=== PATIENT | male | born 1970 | race Caucasian/White ===

== ENCOUNTER 2017-01-13 06:51 | Observation (INO) | payer OTHER ==
--- NOTE | 2017-01-13 06:59 | EDPHY ---
H & P Time Seen by Provider: 01/13/17 06:58 HPI/ROS: CHIEF COMPLAINT: Abdominal pain HISTORY OF PRESENT ILLNESS: Started Friday night approximately 36 hours ago. It has continued to be in the right side of the abdomen below the ribs lateral to the umbilicus. Slightly worse with a deep breath but not changed with eating or drinking. No chest pain or shortness of breath. No cough or hemoptysis. Symptoms do not radiate and are not associated with hematuria or dysuria. No recent fall injury or trauma. Symptoms continue to be mild are not getting better today. REVIEW OF SYSTEMS: Eye: no change in vision ENT: no sore throat Cardiac: no chest pain or syncope Pulmonary: no cough or SOB Abdomen: No vomiting or diarrhea Musculoskeletal: no back pain Skin: no rash Neuro: no headache Constitutional: no fever : no urinary symptoms, no male symptoms. A comprehensive 10 point review of systems is otherwise negative aside from elements mentioned in the history of present illness. PAST MEDICAL HISTORY: Negative except for slightly elevated glucose at 150 noted on screening lab, improved with diet and exercise. Social history: Works at [employer], negative family history for gallstones or venous thromboembolism General Appearance: Alert and conversant, cooperative. Eyes: No scleral icterus. ENT, Mouth: Normal mucous membranes. Respiratory: Normal respiratory effort, breath sounds equal, lungs are clear to auscultation. Speaks in full sentences. Cardiovascular: Regular rate and rhythm. Gastrointestinal: No Caballero sign. Abdominal tenderness on the right side lateral to the umbilicus. No hernia appreciated. Symptoms reproduced by abdominal palpation lateral to the umbilicus but not all the way to the mid axillary line. Neurological: Alert and oriented x3. Normally conversant. Face symmetric, normal movement and sensation in all extremities. Skin: Warm and dry, no rashes. Musculoskeletal: No peripheral edema and no joint swelling. Psychiatric: Not agitated. Emergency Department course/MDM: Suspicion for cardiac or pulmonary disease is low. Plan for labs to include LFTs and lipase, consider CT scanning to evaluate for renal colic or appendicitis. 748: Labs reviewed with the patient, CT scanning abdomen and pelvis discussed and consented. 835: CT reviewed with the patient on PACS. [facility] contacted at this time; per Dr. Cramer. Case discussed with the [facility] physician Dr. Love at 850. ECM physician is requesting transfer to [place] for definitive surgical consultation. The accepting physician is Dr. Huff. Risks, benefits, and alternatives discussed with the patient and consented. The patient will be transferred to [facility] via private vehicle because he is a [place] patient, in stable condition. This is a patient requested transfer. Smoking Status: Never smoked Constitutional: Initial Vital Signs Temperature (C) 36.5 C 01/13/17 06:51 Heart Rate 89 01/13/17 06:51 Respiratory Rate 16 01/13/17 06:51 Blood Pressure 149/90 H 01/13/17 06:51 O2 Sat (%) 96 01/13/17 06:51 O2 Delivery Mode Room Air Allergies/Adverse Reactions: acetaminophen [From Percocet] Allergy (Verified 01/13/17 06:55) oxycodone [From Percocet] Allergy (Verified 01/13/17 06:55) Home Medications: Medication Instructions Recorded Cyclobenzaprine [Flexeril 10 MG 10 mg PO TID #15 tab 05/22/15 (RX)] Ibuprofen [Motrin (*)] 800 mg PO Q6 #15 tab 05/22/15 Medical Decision Making - Diagnostics Imaging Results: Imaging Impressions Abdomen CT 01/13/17 07:50 Impression: 1. Acute appendicitis with appendix thickened up to 11 mm. 2. Constipation without bowel obstruction, drainable abscess, or pneumoperitoneum. 3. Probable hepatic cyst. Findings and recommendations discussed with Emergency Department physician, Jarvis Bhandari, at 0830 hours, January 13, 2017. Final report concurs with initial preliminary interpretation. Acute appendicitis per Isuani at 830am, reviewed by myself. Differential Diagnosis: Differential considered including but not limited to pneumothorax, pneumonia, pulmonary embolism, hepatitis or gallbladder disease, pancreatitis, diverticulitis, renal colic, appendicitis. - Data Points Laboratory Results: Laboratory Results 01/13/17 07:10 01/13/17 07:10 01/13/17 01/13/17 01/13/17 08:00 07:10 07:10 WBC 6.05 10^3/uL 10^3/uL (3.80-9.50) RBC 5.62 10^6/uL 10^6/uL (4.40-6.38) Hgb 16.1 g/dL g/dL (13.7-17.5) Hct 48.4 % % (40.0-51.0) MCV 86.1 fL fL (81.5-99.8) MCH 28.6 pg pg (27.9-34.1) MCHC 33.3 g/dL g/dL (32.4-36.7) RDW 13.2 % % (11.5-15.2) Plt Count 260 10^3/uL 10^3/uL (150-400) MPV 9.6 fL fL (8.7-11.7) Neut % (Auto) 56.0 % % (39.3-74.2) Lymph % (Auto) 29.6 % % (15.0-45.0) [place] % (Auto) 9.3 % % (4.5-13.0) Eos % (Auto) 3.6 % % (0.6-7.6) Baso % (Auto) 1.2 % % (0.3-1.7) Nucleat RBC Rel Count 0.0 % % (0.0-0.2) Absolute Neuts (auto) 3.39 10^3/uL 10^3/uL (1.70-6.50) Absolute Lymphs (auto) 1.79 10^3/uL 10^3/uL (1.00-3.00) Absolute Monos (auto) 0.56 10^3/uL 10^3/uL (0.30-0.80) Absolute Eos (auto) 0.22 10^3/uL 10^3/uL (0.03-0.40) Absolute Basos (auto) 0.07 10^3/uL 10^3/uL (0.02-0.10) Absolute Nucleated RBC 0.00 10^3/uL 10^3/uL (0-0.01) Immature Gran % 0.3 % % (0.0-1.1) Immature Gran # 0.02 10^3/uL 10^3/uL (0.00-0.10) Sodium 139 mEq/L mEq/L (134-144) Potassium 4.6 mEq/L mEq/L (3.5-5.2) Chloride 106 mEq/L mEq/L (97-110) Carbon Dioxide 26 mEq/l mEq/l (22-31) Anion Gap 7 mEq/L L mEq/L (8-16) BUN 9 mg/dL mg/dL (7-23) Creatinine 0.9 mg/dL mg/dL (0.7-1.3) Estimated GFR > 60 Glucose 108 mg/dL H mg/dL (70-100) Calcium 9.1 mg/dL mg/dL (8.5-10.4) Total Bilirubin 0.8 mg/dL mg/dL (0.1-1.4) Conjugated Bilirubin 0.3 mg/dL mg/dL (0.0-0.5) Unconjugated Bilirubin 0.5 mg/dL mg/dL (0.0-1.1) AST 26 IU/L IU/L (17-59) ALT 52 IU/L IU/L (21-72) Alkaline Phosphatase 71 IU/L IU/L (38-126) Total Protein 6.9 g/dL g/dL (6.3-8.2) Albumin 3.9 g/dL g/dL (3.5-5.0) Lipase 198.0 IU/L IU/L (23-300) Urine RBC 1-3 /hpf /hpf (0-3) Urine WBC 1-3 /hpf /hpf (0-3) Ur Epithelial Cells NONE SEEN /lpf /lpf (NONE-1+) Urine Mucus TRACE /lpf /lpf (NONE-1+) Departure - Departure Disposition: [facility] Clinical Impression: Acute appendicitis Qualifiers: Acute appendicitis type: unspecified acute appendicitis type Qualified Code(s) : K35.80 - Unspecified acute appendicitis Condition: Good Referrals: Estela Mcdaniel PA [Primary Care Provider] - As per Instructions [facility] ,. [Edm Groups for Call Sched] - As per Instructions
[2017-01-13 07:20] LABS: % IMMATURE GRANULYOCYTES 0.3 % (0.0-1.1); ABSOLUTE IMMATURE GRANULOCYTES 0.02 10^3/uL (0.00-0.10); ADD DIFF? NO; ADD MORPH? NO; ADD SCAN? NO; ATYPICAL LYMPHOCYTE FLAG 10 (0-99); FRAGMENT RBC FLAG 0 (0-99); HEMATOCRIT 48.4 % (40.0-51.0); HEMOGLOBIN 16.1 g/dL (13.7-17.5); LEFT SHIFT FLG 0 (0-99); LIPEMIA HEMOLYSIS FLAG 80 (0-99); MEAN CELL HEMOGLOBIN 28.6 pg (27.9-34.1); MEAN CELL HEMOGLOBIN CONCENTR. 33.3 g/dL (32.4-36.7); MEAN CELL VOLUME 86.1 fL (81.5-99.8); MEAN PLATELET VOLUME 9.6 fL (8.7-11.7); PLATELET CLUMPS FLAG 0 (0-99); PLATELET COUNT 260 10^3/uL (150-400); RED BLOOD CELL COUNT 5.62 10^6/uL (4.40-6.38); RED CELL DISTRIBUTION WIDTH 13.2 % (11.5-15.2)
[2017-01-13 07:44] LABS: ALANINE AMINOTRANSFERASE 52 IU/L (21-72); ALBUMIN 3.9 g/dL (3.5-5.0); ALKALINE PHOSPHATASE 71 IU/L (38-126); ANION GAP 7 mEq/L (8-16); ASPARTATE AMINOTRANSFERASE 26 IU/L (17-59); BILIRUBIN,TOTAL 0.8 mg/dL (0.1-1.4); BILIRUBIN-CONJUGATED 0.3 mg/dL (0.0-0.5); BILIRUBIN-UNCONJUGATED 0.5 mg/dL (0.0-1.1); CALCIUM 9.1 mg/dL (8.5-10.4); CARBON DIOXIDE 26 mEq/l (22-31); CHLORIDE 106 mEq/L (97-110); CREATININE 0.9 mg/dL (0.7-1.3); GLOMERULAR FILTRATION RATE > 60; GLUCOSE 108 mg/dL (70-100); POTASSIUM 4.6 mEq/L (3.5-5.2); SODIUM 139 mEq/L (134-144); TOTAL PROTEIN 6.9 g/dL (6.3-8.2)
[2017-01-13] MEDS ORDERED: IOPAMIDOL (ISOVUE-300) 100 ML BTL IV ONE (08:01)
[2017-01-13 08:18] LABS: MUCUS TRACE /lpf (NONE-1+)
[2017-01-13] MEDS ORDERED: HEPARIN 1000 UNIT/1 ML MDV ONE (10:31)
[2017-01-13] MEDS ORDERED: ceFAZolin 1 GM/5 ML SYR ONE (10:31)
[2017-01-13] MEDS ORDERED: BUPIVACAINE 0.5% 30 ML SDV ONE (10:31)
--- NOTE | 2017-01-13 11:18 | GHP ---
[f rep st] PREOP HISTORY AND PHYSICAL DATE OF ADMISSION: 01/13/2017 HISTORY OF PRESENT ILLNESS: A 46-year-old male who presents with a day and a half of right lower qu adrant pain. CT scan is positive for appendicitis. He has had no abdominal trauma. He is admitted at this time for a laparoscopic appendectomy. REVIEW OF SYSTEMS: Negative on a complete review of systems. PAST MEDICAL HISTORY: Negative for any major medical hospitalizations or problems. PAST SURGICAL HISTORY: No surgeries. MEDICATIONS: Flexeril. ALLERGIES: None. PHYSICAL EXAMINATION: GENERAL: An alert 46-year-old male in no acute distress. HEAD/NECK: Negati ve for icterus or adenopathy. CHEST: Clear. CARDIAC: Regular rhythm. ABDOMEN: Soft. He is ten felipe in the right lower quadrant. There are no hernias. EXTREMITIES: Benign. Full pulses. NEURO: Physiologic. IMPRESSION: Acute appendicitis. PLAN: Laparoscopic appendectomy. Risks and options were fully discussed and he wishes to proceed. /[id number]/MODL
[2017-01-13] MEDS ORDERED: D5W 1/2 NS 1,000 ML IV SCH (11:45)
[2017-01-13] MEDS ORDERED: LR 1,000 ML IV ONE (12:12)
[2017-01-13] MEDS ORDERED: MIDAZOLAM 2 MG/2 ML VIAL ONE (12:29)
[2017-01-13] MEDS ORDERED: LIDOCAINE 2% 5 ML SDV ONE (12:34)
[2017-01-13] MEDS ORDERED: ONDANSETRON 4 MG/2 ML VIAL ONE (12:34)
[2017-01-13] MEDS ORDERED: KETOROLAC 30 MG/1 ML SDV ONE (12:34)
[2017-01-13] MEDS ORDERED: ROCURONIUM 50 MG/5 ML VIAL ONE (12:34)
[2017-01-13] MEDS ORDERED: DEXAMETHASONE 4 MG/ML VIAL ONE (12:34)
[2017-01-13] MEDS ORDERED: PROPOFOL 200 MG/20 ML VIAL ONE (12:35)
[2017-01-13] MEDS ORDERED: fentaNYL 100 MCG/2 ML INJ ONE ×2 (12:35→13:57)
[2017-01-13] MEDS ORDERED: SUGAMMADEX SODIUM 200 MG/2 ML VIAL IVP ONE (13:21)
--- NOTE | 2017-01-13 13:56 | POSTOPPROG ---
Post Op Note Date of Operation: 01/13/17 Surgeon: Estrada Lam Anesthesiologist: Dr Rodriguez Anesthesia: GET(General Endotracheal) Pre-op Diagnosis: appendicitis Post-op Diagnosis: same Indication: appendicitis Procedure: lap appendectomy Inf/Abcess present in the surg proc area at time of surgery?: No Depth: Organ Space EBL: 50-100
[2017-01-13] MEDS: HYDROmorphONE/DILAUDID 1 MG/ML SYR IVP PRN ×2 (15:54→21:10)
[2017-01-13] MEDS: ERTAPENEM 1 GM in NS 100 ML IV SCH (17:06)
[2017-01-13] MEDS: KETOROLAC 15 MG/1 ML SDV IVP SCH ×2 (17:57→23:11)
[2017-01-13] MEDS: HYDROmorphONE/DILAUDID 2 MG TAB PO PRN ×2 (18:37→23:11)
--- NOTE | 2017-01-14 00:50 | GOP ---
[f rep st] OPERATIVE REPORT DATE OF OPERATION: 01/13/2017 SURGEON: Estrada Lam MD AN/SSN 2 4 OPERATOR: There was no visitor use assistant. ANESTHESIOLOGIST: Dr. Rodriguez. PREOPERATIVE DIAGNOSIS: Acute appendicitis. POSTOPERATIVE DIAGNOSIS: Acute appendicitis. PROCEDURE PERFORMED: Laparoscopic appendectomy. FINDINGS: Patient was found to have a markedly inflamed distal half with his appendix that was stuc k in the right lateral mid abdomen. There was no abscess or perforation, but significant inflammati on. ESTIMATED BLOOD LOSS: Negligible. DESCRIPTION OF PROCEDURE: The patient was taken to the operating room, where he received satisfacto ry general endotracheal anesthesia by Dr. Rodriguez. He was placed in the supine position, prepped and draped in the usual sterile fashion. A periumbilical incision was made. Dissection was carried do wn to the rectus sheath. A Veress needle was inserted, pneumoperitoneum was established. Trocar wa s introduced. Good visualization was obtained. Two other trocars were placed under direct vision. The appendix was riding rather high up on the lateral side of the abdominal wall. It was freed up from the retroperitoneum and from the lateral abdominal wall. The mesoappendix was divided with the Harmonic Scalpel. The base of the appendix was divided with an Endo-ZOË stapler, and then the appe ndix was further mobilized in a retrograde fashion until it was freed up and placed in a specimen ba g. It was then extracted through the upper midline port site. Hemostasis was assured. There was n o significant blood loss. Trocars were removed under direct vision. Trocar sites were closed with 0 Vicryl for the fascia, 4-0 Monocryl subcuticular stitch for the skin. All layers infiltrated with 0.5% Marcaine. He tolerated procedure quite well, was taken to the recovery room in good condition . There were no complications. /[id number]/MODL
[2017-01-14 04:40] VITALS: RESP 18; O2SAT 94
[2017-01-14] MEDS: KETOROLAC 15 MG/1 ML SDV IVP SCH (04:45)
[2017-01-14 07:45] VITALS: BP 123/60; PULSE 89; TEMP 98
[2017-01-14] MEDS: ERTAPENEM 1 GM in NS 100 ML IV SCH (08:58)
--- NOTE | 2017-01-14 12:56 | SOAPPROG ---
SOAP Progress Note Assessment/Plan: Assessment/Plan: 46 Y M s/p lap appy. Eating well. Pain controlled. Afebrile. Wounds intact. Eager to go home. D/c to home with outpt f/u. Rx dilaudid, augmentin. also, otc ibuprofen. limitations discussed. work note provided. O: alert nad ctab rrr abd soft, appropriately ttp inc cdi 01/14/17 12:54 Objective: Vital Signs Temp Pulse Resp BP Pulse Ox 36.7 C 89 18 123/60 H 94 01/14/17 07:44 01/14/17 07:44 01/14/17 07:44 01/14/17 07:44 01/14/17 07:44 01/13/17 01/14/17 01/15/17 05:59 05:59 05:59 Intake Total 1800 Output Total 605 Balance 1195 ICD10 Worksheet Patient Problems: Problems Problem Status Onset Acute appendicitis Acute
== END 2017-01-14 10:19 | disposition home or self-care (01) ==
LOC: F3E 14:53
PROVIDERS: ADMIT Surgery; ATTEND Surgery
PROC: 0DTJ4ZZ Resection of Appendix, Percutaneous Endoscopic Approach (ICD-10-PCS; principal; 2017-01-13 12:45)
DX: K35.80 Unspecified acute appendicitis (principal)
CPT/HCPCS: 44970; 74177; G0378; J1100; J1170; J1335; J1885; J2250; J2405; J2704; J3010; Q9967

== ENCOUNTER 2018-04-14 08:21 | Inpatient (IN) | payer OTHER ==
[2018-04-14] MEDS ORDERED: fentaNYL 100 MCG/2 ML INJ IVP ONE (08:24)
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
[2018-04-14] MEDS ORDERED: IOPAMIDOL (ISOVUE-300) 100 ML BTL ONE (08:40)
[2018-04-14 08:41] LABS: PLATELET COUNT 288 10^3/uL (150-400)
[2018-04-14] MEDS ORDERED: HYDROmorphONE/DILAUDID 2 MG/ML INJ IVP ONE (08:44)
[2018-04-14] MEDS ORDERED: HYDROmorphONE/DILAUDID 1 MG/ML INJ IVP ONE (10:29)
[2018-04-14] MEDS ORDERED: HYDROmorphONE/DILAUDID 1 MG/ML INJ ONE (10:32)
[2018-04-14] MEDS ORDERED: ONDANSETRON 4 MG/2 ML VIAL IVP PRN (10:47)
[2018-04-14] MEDS ORDERED: HYDROmorphONE/DILAUDID 1 MG/ML INJ IVP PRN (10:47)
[2018-04-14] MEDS ORDERED: NALOXONE HCL 0.4 MG/ML INJ IVP PRN (12:58)
[2018-04-14] MEDS: IBUPROFEN 600 MG TAB PO SCH ×2 (13:58→22:19)
[2018-04-14] MEDS: HYDROmorphONE/DILAUDID 6 MG/30 ML PCA IV PRN (14:09)
[2018-04-14] MEDS: CYCLOBENZAPRINE 10 MG TAB PO SCH ×2 (15:58→22:19)
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
[2018-04-15] MEDS: HYDROmorphONE/DILAUDID 6 MG/30 ML PCA IV PRN (05:15)
[2018-04-15] MEDS: IBUPROFEN 600 MG TAB PO SCH ×3 (05:20→21:58)
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
[2018-04-15] MEDS: CYCLOBENZAPRINE 10 MG TAB PO SCH ×3 (08:43→21:59)
[2018-04-15] MEDS ORDERED: MAGNESIUM HYDROXIDE 30 ML UDCUP PO PRN (08:52)
[2018-04-15] MEDS ORDERED: BISACODYL 10 MG SUPP PR PRN (08:52)
[2018-04-15] MEDS ORDERED: LACTULOSE 20 GM/30 ML UDCUP PO PRN (08:52)
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
[2018-04-15] MEDS: SENNOSIDES/DOCUSATE SODIUM TAB PO SCH ×2 (09:59→21:59)
[2018-04-15] MEDS: HYDROCODONE/APAP 5/325 TAB PO PRN (21:59)
[2018-04-16] MEDS: HYDROmorphONE/DILAUDID 6 MG/30 ML PCA IV PRN (04:10)
[2018-04-16] MEDS: HYDROCODONE/APAP 5/325 TAB PO PRN ×3 (04:28→19:19)
[2018-04-16] MEDS: IBUPROFEN 600 MG TAB PO SCH ×3 (06:05→21:19)
[2018-04-16] MEDS: SENNOSIDES/DOCUSATE SODIUM TAB PO SCH ×2 (08:50→21:18)
[2018-04-16] MEDS: ENOXAPARIN 40 MG/0.4 ML SYR SC SCH (08:50)
[2018-04-16] MEDS: CYCLOBENZAPRINE 10 MG TAB PO SCH ×3 (08:50→21:19)
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
[2018-04-16] MEDS: POLYETHYLENE GLYCOL 3350 17 GM PKT PO PRN (15:29)
[2018-04-17] MEDS: HYDROCODONE/APAP 5/325 TAB PO PRN ×3 (06:22→23:09)
[2018-04-17] MEDS: IBUPROFEN 600 MG TAB PO SCH ×3 (06:34→23:05)
[2018-04-17] MEDS: CYCLOBENZAPRINE 10 MG TAB PO SCH ×3 (08:44→23:05)
[2018-04-17] MEDS: SENNOSIDES/DOCUSATE SODIUM TAB PO SCH ×2 (08:44→23:05)
[2018-04-17] MEDS: ENOXAPARIN 40 MG/0.4 ML SYR SC SCH (08:44)
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
--- NOTE | 2018-04-17 13:50 | ASMTCMCOM ---
CM Note CM Note Notes: OT rec inpatient rehab, PT rec home/HHC. Pt wants to d/c home with HHC. [facility] alerted and referral sent in [employer]. D/c plan of care: home with [facility] when medically stable Date Signed: 04/17/2018 01:49 PM Electronically Signed By:ADELA Rose
[2018-04-18] MEDS: IBUPROFEN 600 MG TAB PO SCH ×3 (06:07→21:32)
[2018-04-18] MEDS: POLYETHYLENE GLYCOL 3350 17 GM PKT PO PRN (06:08)
[2018-04-18] MEDS: SENNOSIDES/DOCUSATE SODIUM TAB PO SCH ×2 (10:10→21:32)
[2018-04-18] MEDS: ENOXAPARIN 40 MG/0.4 ML SYR SC SCH (10:10)
[2018-04-18] MEDS: CYCLOBENZAPRINE 10 MG TAB PO SCH ×3 (10:10→21:32)
[2018-04-18] MEDS: HYDROCODONE/APAP 5/325 TAB PO PRN ×2 (10:11→16:15)
[2018-04-19] MEDS: IBUPROFEN 600 MG TAB PO SCH (06:09)
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
[2018-04-19 07:37] VITALS: BP 148/92
[2018-04-19] MEDS: ENOXAPARIN 40 MG/0.4 ML SYR SC SCH (08:57)
[2018-04-19] MEDS: CYCLOBENZAPRINE 10 MG TAB PO SCH (09:01)
[2018-04-19] MEDS: SENNOSIDES/DOCUSATE SODIUM TAB PO SCH (09:01)
[2018-04-19] MEDS: HYDROCODONE/APAP 5/325 TAB PO PRN (09:01)
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
--- NOTE | 2018-04-19 11:29 | ASMTCMCOM ---
CM Note CM Note Notes: Pt DC'd today with [facility] RN, PT, OT. Final orders faxed. Date Signed: 04/19/2018 11:29 AM Electronically Signed By:Danya Nails LCSW
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
== END 2018-04-19 11:25 | disposition home health service (06) | DRG 184 ==
LOC: EDUNIT# → F2N 11:01 → F3N 04-15 14:38
PROVIDERS: ADMIT Surgery; ATTEND Surgery
DX: S22.42XA Multiple fractures of ribs, left side, initial encounter for closed fracture (principal); S27.0XXA Traumatic pneumothorax, initial encounter; S42.022A Displaced fracture of shaft of left clavicle, initial encounter for closed fracture; S70.02XA Contusion of left hip, initial encounter; J45.909 Unspecified asthma, uncomplicated; V28.4XXA Motorcycle driver injured in noncollision transport accident in traffic accident, initial encounter; Y92.411 Interstate highway as the place of occurrence of the external cause
CPT/HCPCS: 82435-PO; 82565-PO; 82947-PO; 84132-PO; 84295-PO; 84520-PO; 85014-PO; 96374; 97116-GP; 97161-GP; 97165-GO; 97530-GO; 97530-GP; 97535-GO; A4565; J1170; J1650; J3010; Q9967

== ENCOUNTER → 2018-05-12 | Outpatient (CLI) | payer OTHER | LOC: BMCIMAGING 09:29 | PROVIDERS: ATTEND Orthopaedic Surgery Hand Surgery | DX: S42.022D Displaced fracture of shaft of left clavicle, subsequent encounter for fracture with routine healing (principal) ==

== ENCOUNTER → 2018-06-10 | Outpatient (CLI) | payer OTHER | LOC: FIMAGING 15:19 | PROVIDERS: ATTEND Orthopaedic Surgery Hand Surgery | DX: S42.022D Displaced fracture of shaft of left clavicle, subsequent encounter for fracture with routine healing (principal) ==